=== PATIENT | male | born 1955 | race Caucasian/White ===

== ENCOUNTER 2020-07-11 14:34 | Outpatient (REF) | payer BC, SELFPAY ==
[2020-07-11 17:51] LABS: Basophils Absolute Auto 0.1 X10*3/uL (0.0-0.2); Basophils Percent Auto 0.8 % (0-2); Eosinophils Absolute Auto 0.2 X10*3/uL (0.0-0.4); Eosinophils Percent Auto 2.1 % (0-4); Hematocrit 44.6 % (42-52); Hemoglobin 15.1 g/dl (14.0-18.0); Imm Gran Abs Auto 0.02 X10*3/uL (0.00-0.03); Imm Gran Pct Auto 0.3 % (0.0-0.4); Lymphocytes Absolute Auto 1.5 X10*3/uL (1.2-4.9); Lymphocytes Percent Auto 19.5 % (20-40); MANUAL DIFF FLAG NO; Mean Corpuscular HGB Conc 33.9 g/dl (31.0-36.0); Mean Corpuscular Hemoglobin 29.7 pg (27.0-33.0); Mean Corpuscular Volume 87.6 fL (80-98); Mean Platelet Volume 9.4 fL (9.4-12.4); Monocytes Absolute Auto 0.4 X10*3/uL (0.1-1.2); Monocytes Percent Auto 5.6 % (2-11); Neutrophils Absolute Auto 5.4 X10*3/uL (2.0-8.3); Neutrophils Percent Auto 71.7 % (45-73); Platelet Count 307 X10*3/uL (160-400); Red Blood Count 5.09 X10*6/uL (4.60-5.80); Red Cell Distribution Width 13.7 % (11.0-16.0); White Blood Count 7.5 X10*3/uL (4.8-10.8)
[2020-07-11 18:26] LABS: Alanine Aminotransferase 15 U/L (0-40); Albumin Level 4.4 g/dL (3.5-5.0); Alkaline Phosphatase 76 U/L (39-117); Anion Gap 13 (12-20); Aspartate Amino Transferase 20 U/L (5-37); Bilirubin Total 0.6 mg/dL (0.0-1.0); Blood Urea Nitrogen 14 mg/dL (9-16); Calcium 9.1 mg/dL (8.4-10.2); Carbon Dioxide 28 mmol/L (22-29); Chloride 98 mmol/L (96-108); Cholesterol 172 mg/dL; Estimated Glomerular Filt Rate 57; Glucose Fasting 96 mg/dL (60-99); HDL Cholesterol 68 mg/dL; LDL Cholesterol Calculated 85 mg/dl; Potassium 3.7 mmol/l (3.3-5.1); Sodium 135 mmol/L (135-145); Total Protein 7.2 g/dL (6.5-8.0); Triglycerides 99 mg/dL
== END 2020-07-11 14:35 | disposition home or self-care (01) ==
LOC: HO.MANLDS 14:34
PROVIDERS: PCP Internal Medicine; Visit Provider Physician Assistant
DX: Z00.00 Encounter for general adult medical examination without abnormal findings (principal); Z13.6 Encounter for screening for cardiovascular disorders
CPT/HCPCS: 36415; 80053; 80061; 85025

== ENCOUNTER 2021-06-08 15:52 | Outpatient (REF) | payer BC, SELFPAY ==
[2021-06-08 18:46] LABS: Alanine Aminotransferase 15 U/L (0-40); Albumin Level 4.2 g/dL (3.5-5.0); Alkaline Phosphatase 78 U/L (39-117); Anion Gap 10 (12-20); Aspartate Amino Transferase 19 U/L (5-37); Bilirubin Total 0.6 mg/dL (0.0-1.0); Blood Urea Nitrogen 21 mg/dL (9-16); Calcium 9.4 mg/dL (8.4-10.2); Carbon Dioxide 28 mmol/L (22-29); Chloride 103 mmol/L (96-108); Estimated Glomerular Filt Rate 40; Glucose Random 92 mg/dL (60-115); Potassium 4.1 mmol/L (3.3-5.1); Sodium 137 mmol/L (135-145); Total Protein 7.1 g/dL (6.5-8.0)
== END 2021-06-08 15:53 | disposition home or self-care (01) ==
LOC: HO.MANLDS 15:52
PROVIDERS: PCP Physician Assistant; Visit Provider Physician Assistant
DX: N18.31 Chronic kidney disease, stage 3a (principal)
CPT/HCPCS: 36415; 80053

== ENCOUNTER 2021-06-23 16:15 | Outpatient (REF) | payer BC, SELFPAY ==
--- NOTE | ~2021-06-23 | CT_ITS ---
EXAMINATION: CT SINUS WITHOUT CONTRAST CLINICAL INFORMATION: Chronic maxillary sinusitis COMPARISON: None TECHNIQUE: Multidetector CT scan of the paranasal sinuses are multiplanar reconstructions. This CT examination was performed using dose optimization techniques as appropriate, variously including the following: *Automated exposure control *Adjustment of mA and/or kV according to patient size (this includes techniques or standardized protocols for targeted exams where dose is matched to indication/reason for exam; i.e. extremities or head) *Use of iterative reconstruction technique DLP: 107 mGy-cm FINDINGS: FRONTAL SINUSES AND DRAINAGE PATHWAYS: Normal. MAXILLARY SINUSES AND DRAINAGE PATHWAYS: Small nonfluid attenuating lesion most consistent with a polyp left maxillary sinus medially. Minor 3 mm thickening of the right maxillary sinus antrum only. No air-fluid level. The infundibula are patent. ETHMOID SINUSES: Normal. The ethmoid roofs are normal. SPHENOID SINUSES AND DRAINAGE PATHWAYS: Normal. The sphenoid ostia are patent. The carotid canals are covered by bone. NASAL CAVITY/NASOPHARYNX: The nasal cavity is clear. There is no nasal septal deviation/spurring. The nasopharynx is symmetric. ADDITIONAL RELEVANT FINDINGS: There is sclerosis about the right mastoid air cells consistent with chronic mucosal disease. CT/CT sinus wo con IMPRESSION: Maxillary sinus disease as above. Changes of right-sided mastoid mucosal disease.
== END 2021-06-23 16:16 | disposition home or self-care (01) ==
LOC: HO.CT 16:15
PROVIDERS: PCP Internal Medicine; Visit Provider Physician Assistant
DX: J32.0 Chronic maxillary sinusitis (principal)
CPT/HCPCS: 70486

== ENCOUNTER 2021-11-23 14:13 | Outpatient (REF) | payer BC, SELFPAY | END 2021-11-23 14:14 | disposition home or self-care (01) | LOC: HO.MANLDS 14:13 | PROVIDERS: PCP Internal Medicine; Visit Provider Physician Assistant | DX: Z12.5 Encounter for screening for malignant neoplasm of prostate (principal); N40.1 Benign prostatic hyperplasia with lower urinary tract symptoms | CPT/HCPCS: 36415; 84153 ==

== ENCOUNTER 2024-01-31 09:48 | Outpatient (REF) | payer BC, SELFPAY ==
[2024-01-31 13:31] LABS: MANUAL DIFF FLAG NO
[2024-01-31 14:07] LABS: Basophils Absolute Auto 0.1 X10*3/uL (0.0-0.2); Basophils Percent Auto 1.5 % (0-2); Eosinophils Absolute Auto 0.1 X10*3/uL (0.0-0.4); Hematocrit 47.7 % (42.0-52.0); Hemoglobin 16.2 g/dl (14.0-18.0); Imm Gran Abs Auto 0.04 X10*3/uL (0.00-0.03); Imm Gran Pct Auto 0.8 % (0.0-0.4); Lymphocytes Absolute Auto 1.3 X10*3/uL (1.2-4.9); Lymphocytes Percent Auto 28.4 % (20-40); Mean Corpuscular Hemoglobin 30.1 pg (27.0-33.0); Mean Corpuscular Volume 88.5 fL (80.0-98.0); Mean Platelet Volume 9.7 fL (9.4-12.4); Monocytes Absolute Auto 0.5 X10*3/uL (0.1-1.2); Monocytes Percent Auto 10.2 % (2-11); Neutrophils Absolute Auto 2.7 x10*3/uL (2.0-8.3); Neutrophils Percent Auto 56.1 % (45-73); Platelet Count 270 X10*3/uL (160-400); Red Blood Count 5.39 X10*6/uL (4.60-5.80); Red Cell Distribution Width 13.2 % (11.0-16.0); White Blood Count 4.7 X10*3/uL (4.8-10.8)
[2024-01-31 14:20] LABS: Alanine Aminotransferase 16 U/L (0-40); Albumin Level 4.4 g/dL (3.5-5.0); Alkaline Phosphatase 62 U/L (39-117); Anion Gap 11 (12-20); Aspartate Amino Transferase 21 U/L (5-37); Bilirubin Total 0.5 mg/dL (0.0-1.0); Blood Urea Nitrogen 22 mg/dL (9-16); Carbon Dioxide 28 mmol/L (22-29); Chloride 103 mmol/L (96-108); Cholesterol 187 mg/dL (<200); Estimated Glomerular Filt Rate 49; Glucose Random 95 mg/dL (60-115); HDL Cholesterol 71 mg/dL (>40); LDL Cholesterol Calculated 104 mg/dL (<100); Potassium 3.7 mmol/L (3.3-5.1); Sodium 138 mmol/L (135-145); Total Protein 7.4 g/dL (6.5-8.0); Triglycerides 60 mg/dL (<150); Uric Acid 8.3 mg/dL (3.4-7.0)
== END 2024-01-31 09:49 | disposition home or self-care (01) ==
LOC: HO.MANLDS 09:48
PROVIDERS: Visit Provider Physician Assistant
DX: M10.09 Idiopathic gout, multiple sites (principal); Z13.6 Encounter for screening for cardiovascular disorders; Z12.5 Encounter for screening for malignant neoplasm of prostate
CPT/HCPCS: 36415; 80053; 80061; 84153; 84550; 85025